=== PATIENT | male | born 1950 | race Caucasian/White ===

== ENCOUNTER 2018-12-10 20:18 | Emergency (ER) | payer MEDICARE, BC ==
--- NOTE | 2018-12-10 21:14 | ED Physician Documentation ---
PD HPI CHEST PAIN - Stated complaint Stated Complaint: HIGH BP - Chief complaint Chief Complaint: Cardiac - History obtained from History obtained from: Patient - History of Present Illness Timing - onset: Today (he had been off BP meds for few months, Rx ran out and he was feeling okay. Did not have any CP nor headache, nor edema. Thought about his BP and took it randomly today and noted it was 150/110. Called his former PMD (moved here recently) and got Rx for med. However, when in pharmacy getting it, took BP there at a machine and got 200/110 reading. Pharmacist suggested he come to ER. He did take first dose of his BP med.) Timing - duration: Other (unknown how long BP high, but the level of 200 systolic was just this evening, was earlier this afternoon at 150s.) Timing - details: Still present, Waxing and waning Quality: Other (not having any chest pain, pressure, dyspnea, edema, nor headache.). No: Pressure, Tightness Associated symptoms: No: Shortness of air, Feeling faint / dizzy, General Weakness, Palpitations Review of Systems Constitutional: denies: Fever, Fatigue, Weight Loss Nose: denies: Rhinorrhea / runny nose, Congestion Throat: denies: Sore throat Cardiac: denies: Chest pain / pressure, Palpitations Respiratory: denies: Dyspnea, Cough GI: denies: Vomiting, Diarrhea, Bloody / black stool Musculoskeletal: denies: Extremity swelling Neurologic: denies: Generalized weakness, Focal weakness, Numbness, Near syncope, Altered mental status, Headache PD PAST MEDICAL HISTORY - Past Medical History Past Medical History: Yes Cardiovascular: Hypertension : Kidney stones - Past Surgical History Past Surgical History: Yes - Present Medications Home Medications: Ambulatory Orders Medication Instructions Recorded Confirmed Aspirin [Aspir 81] 162 mg PO DAILY 10/11/14 10/11/14 Hydrocodone/Acetaminophen 1 - 2 each PO Q6H PRN #15 tablet 10/11/14 [Hydrocodon-Acetaminophen 5-325] Ibuprofen [Motrin] 800 mg PO Q8H PRN #30 tablet 10/11/14 Ondansetron Odt [Zofran] 4 mg TL Q6H PRN #10 tablet 10/11/14 - Allergies Allergies/Adverse Reactions: Allergies Allergy/AdvReac Type Severity Reaction Status Date / Time Tetracyclines AdvReac Hives Verified 12/10/18 22:09 - Social History Does the pt smoke?: No Smoking Status: Never smoker Does the pt drink ETOH?: No Does the pt have substance abuse?: No - Immunizations Immunizations are current?: Yes - POLST Patient has POLST: No PD ED PE NORMAL - Vitals Vital signs reviewed: Yes - General General: Alert and oriented X 3, No acute distress, Well developed/nourished - HEENT HEENT: Moist mucous membranes, Pharynx benign - Neck Neck: Supple, no meningeal sign, No adenopathy - Cardiac Cardiac: RRR, No murmur - Respiratory Respiratory: Clear bilaterally - Abdomen Abdomen: Soft, Non tender - Male Male : Deferred - Rectal Rectal: Deferred - Back Back: No CVA TTP - Derm Derm: Normal color, Warm and dry - Extremities Extremities: No deformity, No tenderness to palpate, Normal ROM s pain, No edema, No calf tenderness / cord - Neuro Neuro: Alert and oriented X 3, No motor deficit, Normal speech - Psych Psych: Normal affect Results - Vitals Vitals: Oxygen O2 Source Room air - EKG (time done) 20:25 Rate: Rate (enter#) (67) Rhythm: NSR [place]: Normal Intervals: Normal DC, RBBB (incomplete) QRS: Normal Ischemia: Normal ST segments. No: ST elevation c/w ischemia, ST depression - Labs Labs: Laboratory Tests 12/10/18 12/10/18 12/10/18 19:40 19:40 19:40 WBC 4.2 L RBC 4.86 Hgb 14.0 Hct 44.8 MCV 92.2 MCH 28.8 MCHC 31.3 L RDW 12.2 Plt Count 174 MPV 10.5 Neut # (Auto) 1.7 Lymph # (Auto) 1.6 [place] # (Auto) 0.6 Eos # (Auto) 0.1 Baso # (Auto) 0.0 Absolute Nucleated RBC 0.00 Nucleated RBC % 0.0 Sodium 142 Potassium 3.4 L Chloride 103 Carbon Dioxide 29 Anion Gap 10.0 BUN 27 H Creatinine 1.0 Estimated GFR (MDRD) 74 L Glucose 94 Calcium 8.9 Magnesium 2.3 Total Bilirubin 0.7 AST 22 ALT 24 Alkaline Phosphatase 65 Troponin I < 0.04 Total Protein 6.5 L Albumin 4.3 Globulin 2.2 Albumin/Globulin Ratio 2.0 Lipase 56 H PD MEDICAL DECISION MAKING - ED course Complexity details: reviewed results, considered differential (elevated BP without symptoms. We had discussion about it and signs/symptoms that would be concerning for return to ER. ), d/w patient Departure - Departure Disposition: 01 Home, Self Care Clinical Impression: Elevated blood pressure reading, Hypokalemia Condition: Stable Record reviewed to determine appropriate education?: Yes Instructions: ED HTN Established Comments: Continue your lisinopril daily. You can take it in the morning tomorrow and do not have to wait till the evening. What ever usual pattern is good for your medications. Stay well-hydrated. Low-salt diet as you typically do. Regular exercise as you typically do. Do not take your blood pressure tonight as it will certainly be more elevated if you check it once or more. See how it is doing over the next few days once or twice daily and establish a trend. The dose may need to be increased over a week or 2 if your blood pressure still remains high. Your potassium level was slightly low and so would just consider potassium supplement over the next week or 2 and that should be sufficient. Return if the symptoms associated with high blood pressure such as headache, confusion, blurred vision, chest pain or dyspnea. Discharge Date/Time: 12/10/18 21:40
[2018-12-10 21:19] LABS: EOSINOPHILS # (AUTO) 0.1 10^3/uL (0.0-0.7); EOSINOPHILS % (AUTO) 2.9 %; LYMPHOCYTES # (AUTO) 1.6 10^3/uL (1.5-3.5); LYMPHOCYTES % (AUTO) 39.4 %; MEAN CORPUSCULAR HEMOGLOBIN 28.8 pg (27.0-31.0); MEAN CORPUSCULAR HGB CONC 31.3 g/dL (32.0-36.0); MEAN CORPUSCULAR VOLUME 92.2 fL (80.0-94.0); MEAN PLATELET VOLUME 10.5 fL (7.4-11.4); MONOCYTES # (AUTO) 0.6 10^3/uL (0.0-1.0); MONOCYTES % (AUTO) 15.1 %; NEUTROPHILS # (AUTO) 1.7 10^3/uL (1.5-6.6); NEUTROPHILS % (AUTO) 41.4 %; PLT - PLATELET COUNT 174 10^3/uL (130-450); RED BLOOD COUNT 4.86 10^6/uL (4.70-6.10); RED CELL DISTRIBUTION WIDTH 12.2 % (12.0-15.0); WHITE BLOOD COUNT 4.2 x10^3/uL (4.8-10.8)
[2018-12-10 21:26] LABS: ALBUMIN 4.3 g/dL (3.2-5.5); BILIRUBIN,TOTAL 0.7 mg/dL (0.2-1.0); CALCIUM 8.9 mg/dL (8.5-10.3); MAGNESIUM 2.3 mg/dL (1.7-2.8); TOTAL PROTEIN 6.5 g/dL (6.7-8.2)
[2018-12-10] MEDS ORDERED: POTASSIUM CHLORIDE 20 MEQ TABLET PO STA (21:49)
[2018-12-10 22:00] VITALS: BP 174/94
== END 2018-12-10 21:40 | disposition home or self-care (01) ==
LOC: ED 20:18
DX: I10 Essential (primary) hypertension (principal); E87.6 Hypokalemia; I45.10 Unspecified right bundle-branch block; Z79.82 Long term (current) use of aspirin
CPT/HCPCS: 36415; 80053; 83690; 83735; 84484; 85025; 93005; 99282; 99284; A9270

== ENCOUNTER 2023-03-03 08:00 | Outpatient (CLI) | payer MEDICARE, OTHER ==
[2023-03-04 23:07] LABS: ADENOVIRUS F 40/41 Not Detected (Not Detected); ASTROVIRUS Not Detected (Not Detected); C DIFFICILE TOXIN A/B Not Detected (Not Detected); CAMPYLOBACTER Not Detected (Not Detected); CRYPTOSPORIDIUM Not Detected (Not Detected); CYCLOSPORA CAYETANENSIS Not Detected (Not Detected); ENTAMOEBA HISTOLYTICA Not Detected (Not Detected); ENTEROAGGREGATIVE E COLI Not Detected (Not Detected); ENTEROPATHOGENIC E COLI Detected (Not Detected); ENTEROTOXIGENIC E COLI Not Detected (Not Detected); GIARDIA LAMBLIA Not Detected (Not Detected); NOROVIRUS GI/GII Not Detected (Not Detected); PLESIOMONAS SHIGELLOIDES Not Detected (Not Detected); ROTAVIRUS A Not Detected (Not Detected); SALMONELLA Not Detected (Not Detected); SAPOVIRUS Not Detected (Not Detected); SHIGA-TOXIN-PRODUCING E COLI Not Detected (Not Detected); SHIGELLA/ENTEROINVASIVE E COLI Not Detected (Not Detected); VIBRIO Not Detected (Not Detected); VIBRIO CHOLERAE Not Detected (Not Detected); YERSINIA ENTEROCOLITICA Not Detected (Not Detected)
== END 2023-03-03 23:59 | disposition home or self-care (01) ==
LOC: LAB.R 08:00
PROVIDERS: ATTEND Naturopath
DX: R19.7 Diarrhea, unspecified (principal)
CPT/HCPCS: 87507